=== PATIENT | female | born 1955 | race Caucasian/White ===

== ENCOUNTER 2024-12-13 08:49 | Outpatient (AMB) | payer OTHER, SELFPAY ==
--- NOTE | 2024-12-13 08:51 | MHC.OFFVIS ---
Vital Signs 12/13/24 08:58 Height 5 ft 1.5 in Weight 91 lb 11.397 oz BMI 17.0 BP 153/94 H Blood Pressure Location Lt brachial Position Sitting Pulse 71 Intake Visit Reasons: colo screening Intake Note: New patient in office for colonoscopy screening. CC: Patient reports that she believes she has IBS. She states that after she eats she starts she hear a lot of noises and has to run to the bathroom. She states that when she goes stools are loose but small pieces of stool. Last colonoscopy approximately 5 years per patient. Bioassayist Required: No Accompanied by: Self / Same As Patient Allergies sulfadiazine Allergy (Unknown, Verified 12/13/24 09:03) Unknown HPI HPI colo screening: Details: 69-year-old female here for preprocedural meeting to discuss a screening colonoscopy. She is referred by [facility]. 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 TODAY'S VISIT She says I have problems with IBS, she eats and hears her stomach gurgling and will have post prandial BM's of mixed consistency. Her stool is also soft and little pieces. Her stool are not very large. This started about 20 days ago. She also notes that my digestion is slow, I ate corn and did not see it in the stools until 5 days later. She can not pinpoint any preceding medication changes, sick contacts, or dietary changes. No fevers/chills, N/V or abd pain just a lot of borborygmus. She has a great deal of malodorous gas. The gas is around eating. No abx use recently. BUT AFTER DISCUSSION SHE just started on gabapentin in September and they have been increasing the dose. This is the most likely factor. She had her last scope about 5 years ago at [facility], she has a hx of polyps. She had no particular problems but she has a lot of anxiety around hospitals. She has had multiple losses recently, 2 friends and her dog. She denies any cardiac or respiratory problems. No anesthesia or sed problems. No ID problems. She has a hx of TA. I will leave it up to her to try working with the gabapentin dosing and if this does not resolve her bowel or she she can come back to me on we can work on that. However this seems like the most likely culprit given the sudden onset of symptoms coinciding with start of the medication. [facility] Surgical History (Updated 12/13/24 @ 09:06 by YESSENIA Billy) H/O breast augmentation H/O colonoscopy Social History (Updated 12/13/24 @ 09:15 by YESSENIA Billy) Alcohol intake: current Alcohol intake frequency: a few times a week Alcohol type: wine Patient Tobacco Use Status: Former Tobacco user Non Cigarette Tobacco use how lon years ago Review of Systems Const Denies fatigue, Denies fever(s), Denies night sweats, Denies poor appetite and Denies weight loss Eyes Details: glasses Reports requires corrective lenses ENT Reports Normal hearing present, Denies dental pain, Denies dysphagia, Denies hearing loss, Denies mouth pain, Reports neck pain, Denies odynophagia, Denies throat swelling, Denies tongue swelling and Reports other (Dentition adequate) Card Reports no additional complaints Resp Reports no additional complaints GI Details: Denies abdominal pain, Denies melena, Reports bloating, Denies hematochezia, Denies constipation, Denies GI cramping, Denies dysphagia, Reports excessive flatus, Denies early satiety, Denies heartburn, Denies diarrhea, Reports loose stools, Denies nausea, Denies odynophagia, Denies vomiting and Denies hematemesis Musc Reports arthralgias and Reports neck pain Skin/Breast Denies pruritus, Denies lesions, Denies rash and Denies jaundice Neuro Reports Normal hearing present and Denies Abnormal speech present Psych Reports anxiety Endo Denies fatigue Aller/Immun Denies throat swelling and Denies tongue swelling Physical Exam Vital Signs: Last Vital Signs Pulse 71 12/13/24 08:58 BP 153/94 H 12/13/24 08:58 BMI result Body Mass Index 17.0 Const General: cooperative, no acute distress, well developed and well groomed Nutritional Appearance: well nourished and thin Orientation/consciousness: oriented to person, oriented to place and oriented to time Limitations: No language barrier HEENT Head: Yes normocephalic and Yes atraumatic Eyes General: appearance normal, both eyes and all related structures Pupils: Equal, round and reactive pupils present Neck Neck: Yes normal visual inspection and Yes no lymphadenopathy Thyroid: Thyroid normal Resp Effort & Inspection: normal respiratory effort and able to speak in complete sentences Auscultation: clear to auscultation bilaterally Cardio Rate: regular rate Rhythm: regular rhythm Heart sounds: Normal, physiologic split S2 sound present Peripheral pulses: radial pulses present and posterior tibial pulses present GI Inspection: No distended and No Abdominal panniculus present Palpation (GI): Soft to palpation, nontender, no guarding, not rigid and No hepatosplenomegaly present Percussion: Yes normal to percussion Auscultation: normal bowel sounds Rectal Exam - Female: deferred Skin General skin exam: no rashes or lesions noted, turgor normal, skin not dry, no jaundice, No spider nevi and no striae Rashes: no rashes Nails: normal Neuro General: oriented to person, oriented to place and oriented to time Cranial nerves: Yes Equal, round and reactive pupils present and Yes Normal hearing present Speech: No Abnormal speech present Extrem General: Yes normal to inspection, No clubbing, No cyanosis and No edema Psych Appearance: grossly normal and well kempt Mental Status: mental status grossly normal Speech and movement: Pressured speech present Affect: Anxious affect present Attitude: cooperative Thought process: Normal thought process present and not confabulating Thought content: Normal thought content present Insight: Fair insight present (Psych) Judgement: Fair judgement present (Psych) Assessment & Plan Assessment & Plan (1) Pre-op examination: Code(s): Z01.818 - Encounter for other preprocedural examination Category: Medical Plan She says I have problems with IBS, she eats and hears her stomach gurgling and will have post prandial BM's of mixed consistency. Her stool is also soft and little pieces. Her stool are not very large. This started about 20 days ago. She also notes that my digestion is slow, I ate corn and did not see it in the stools until 5 days later. She can not pinpoint any preceding medication changes, sick contacts, or dietary changes. No fevers/chills, N/V or abd pain just a lot of borborygmus. She has a great deal of malodorous gas. The gas is around eating. No abx use recently. BUT AFTER DISCUSSION SHE just started on gabapentin in September and they have been increasing the dose. This is the most likely factor. She had her last scope about 5 years ago at [facility], she has a hx of polyps. She had no particular problems but she has a lot of anxiety around hospitals. She has had multiple losses recently, 2 friends and her dog. She denies any cardiac or respiratory problems. No anesthesia or sed problems. No ID problems. She has a hx of TA. I will leave it up to her to try working with the gabapentin dosing and if this does not resolve her bowel or she she can come back to me on we can work on that. However this seems like the most likely culprit given the sudden onset of symptoms coinciding with start of the medication. Orders: Orders Comprehensive Met. Panel Today Z01.818 - Encounter for other preprocedural examination Colonoscopy - GI Use Only Today Z01.818 - Encounter for other preprocedural examination Complete Blood Count Auto Diff Today Z01.818 - Encounter for other preprocedural examination Medications: New peg 3350-electrolytes 236-22.74-6.74 -5.86 gram (Golytely) until fecal effluent is clear; do not exceed a total volume of 2,000 mL 240 mL PO Q10M 4,000 mL 0RF 1 day Z12.11 - Encounter for screening for malignant neoplasm of colon bisacodyl (Dulcolax (bisacodyl)) 10 mg (2 x 5 mg) PO BEDTIME 4 tabs 0RF 2 days Coding Level of Care Code New Pt Level 3 (83862) Diagnoses Pre-op examination Z01.818
[2024-12-13 08:58] VITALS: BP 153/94; PULSE 71; BMI 17.0
--- OUTSIDE RECORDS SUMMARY | 2024-12-13 09:10 | XMS_ITS | Clinical Summary ---
Author Organization [facility] Address [address] [place] [address] Care Team Providers Care Manager Hiv Name Role Phone Unavailable Primary Care Provider Unavailabl e Social History Tobacco Use Types Packs/Day Years Used Date Smoking Tobacco: Never Assessed Comments Unknown Sex and Gender Information Value Date Recorded Sex Assigned at Not on file Legal Sex Female 8:25 PM EDT Gender Identity Not on file Sexual Orientation Not on file Plan of Treatment Health Maintenance Due Date Last Done Comments Hepatitis C Screening 1955 DTaP/Tdap/Td (1 - Tdap) 11/03/1973 Mammogram/Breast Imaging 12/27/2001 001, 11/15/2000 Pneumococcal 50+ years (1 of 1 - PCV) 11/03/2005 Zoster (Shingrix) (1 of 2) 11/03/2005 Bone Density 11/03/2020 COVID-19 Vaccine ( - 2023-2 5 season) 2024 Influenza (#1) 2025 RSV (1 - 1-dose 75+ series) 11/03/2030 Pap Smear Discontinued 02/15/2001, 11/09/2000 HPV Vaccine Aged Out No longer eligi ble based on patient's age to complete this topic Hep A Aged Out No longer eligi ble based on patient's age to complete this topic Hep B Aged Out No longer eligi ble based on patient's age to complete this topic Hib Aged Out No longer eligi ble based on patient's age to complete this topic Meningococcal ACWY Aged Out No longer eligible based on patient's age to complete this topic Zoster (Zostavax) Discontinued Procedures * Due to [place] state law, this organization might not be sharing negative HIV tests. Procedure Name Priority Date/Time Associated Diagnosis Comments PAP SMEAR Routine 02/15/2001 12:01 PM EDT MAMMOGRAM ADDENDUM Routine 12/27/2000 12 :45 PM EDT Routine General Medical Examination at a Health Care Facility from Last 3 Months or Most Recently Relevant to Health Maintenance Results * Due to [place] state law, this organization might not be sharing negative HIV tests. * PAP SMEAR (02/15/2001 12:01 PM EDT) PAP SOURCE VCE [facility] (CLIA# [id number]) PAP NUMBER OF SLIDES RECEIVED 1 [facility] (CLIA# [id number]) LMP [facility] (CLIA# [id number]) Comment:01/22 LQPAPENDO [facility] (CLIA# [id number]) Comment:Endocervical cells a re present PAP SPECIMEN ADEQUACY [facility] (CLIA# [id number]) Comment:Satisfactory specime n for Cytologic evaluation. INTERPRETATION/ RESULT - PAP [facility] (CLIA# [id number]) Comment:WITHIN NORMAL LIMITS PAP PATHOLOGY GROUP [facility] (CLIA# [id number]) Comment: Screening performed at [facility], [place] [address] 02/15/2001 12:0 1 PM EDT 02/15/2001 12:01 PM EDT us Aditi Sifuentes MD PATHOLOGY Final Resu lt [facility] (CLIA# [id number]) [address] [place] [address] * MAMMOGRAM ADDENDUM (12/27/2000 12:45 PM EDT) RADIOLOGY REPORT Addendum to mammogram report 11-15-00 The patient's outside prior mammograms from [facility] performed 1990 have been obtained . .When compared to the current [facility] examination, no sign of interval change has occurred. [facility] (CLIA# [id number]) Anatomical Region Laterality Modality Other 12/27/2000 12:4 5 PM EDT Narrative 12/28/2000 9:14 AM EDT Reason for Study/History: MAMMO ADDENDUM DR. IVERSON Test(s) processed by : [facility]- OTHER Final Re sult from Last 3 Months or Most Recently Relevant to Health Maintenance
--- OUTSIDE RECORDS SUMMARY | 2024-12-13 09:10 | XMS_ITS ---
Author Organization Unknown ENCOUNTERS Encounter Performer Location Date Diagnosis Diagnosis Status Outpatient JENNIFER NELSON [facility] [address] [place] [address] [id number] Outpatient [facility] [address] [place] [phone] [id number] Outpatient [address] [id number] Outpatient [address] [id number] Outpatient [facility] [address] [place] [id number] Outpatient [facility] [address] [place] [address] [id number] Outpatient CASSIE CHAMORRO MD [facility] [address] [place] [address] [id number] Outpatient [facility] [address] [place] [address] [id number] Outpatient [facility] [address] [place] [address] [id number] Outpatient [facility] [address] [place] [id number] *Note: Encounters from your own facility or health system may be excluded. Allergies, Adverse Reactions, Alerts Allergen Type Severity Identification Date Medications Name Date Quantity Days Supplied GPI Number
== END 2024-12-13 09:53 | disposition home or self-care (01) ==
LOC: HO.HGI 08:49
PROVIDERS: Visit Provider Nurse Practitioner
DX: Z01.818 Encounter for other preprocedural examination (principal); Z12.11 Encounter for screening for malignant neoplasm of colon
CPT/HCPCS: S0285